=== PATIENT | female | born 1990 | race Two or more races ===

== ENCOUNTER 2021-07-16 05:30 | Day surgery (SDC) | payer OTHER ==
[2021-07-16] MEDS ORDERED: ACETAMINOPHEN-1 EAC2 PO (11:25)
[2021-07-16] MEDS ORDERED: IBU600 MG PO (11:25)
== END 2021-07-16 15:30 | disposition home or self-care (01) ==
LOC: CIR.AMB 05:30
PROVIDERS: ATTEND Obstetrics & Gynecology
DX: D39.11 Neoplasm of uncertain behavior of right ovary (principal); Z30.2 Encounter for sterilization